=== PATIENT | male | born 1935 | race Two or more races ===

== ENCOUNTER 2017-08-12 17:21 | Inpatient (IN) | payer OTHER, MEDICARE ==
[~2017-08-12] VITALS: Ht 177.8 cm; Wt 65.0 kg
[2017-08-12 18:21] LABS: BASOPHIL % 0.3 % (0-2); RED CELL DISTRIBUTION WIDTH 14.1 % (11.5-14.5)
[2017-08-12 18:33] LABS: PLATELET COUNT 423 x10^3mcL (130-400)
[2017-08-12 18:54] LABS: UA SPECIFIC GRAVITY <=1.005 (1.005-1.035); microscopic required? YES; urine erythrocyte 3+ (NEGATIVE)
[2017-08-12 19:06] LABS: ALBUMIN 2.7 g/dL (3.4-5.0); ALKALINE PHOSPHATASE 65 U/L (46-116); ALT/SGPT 19 U/L (16-63); AST/SGOT 20 U/L (15-37); BILIRUBIN TOTAL 0.46 mg/dL (0.20-1.00); CALCIUM 8.5 mg/dL (8.5-10.1); CARBON DIOXIDE 27.4 mmol/L (21-32); CHLORIDE SERUM 94 mmol/L (98-107); CREATININE SERUM 2.2 mg/dL (0.7-1.3); GLUCOSE SERUM 135 mg/dL (74-106); POTASSIUM SERUM 3.1 mmol/L (3.5-5.1); SODIUM SERUM 134 mmol/L (136-145); TOTAL PROTEIN, SERUM 6.8 g/dL (6.4-8.2)
[2017-08-12] MEDS ORDERED: NAMENDA10 M2 PO (19:31)
[2017-08-12 20:31] VITALS: BP 122/79
[2017-08-12 20:35] VITALS: Ht 177.8 cm; Wt 65.0 kg
[2017-08-12 21:29] LABS: T3 TOTAL 0.98 ng/mL
[2017-08-12 21:59] LABS: CHOLESTEROL/HDL RATIO 3.2; MAGNESIUM 1.7 mg/dL (1.8-2.4); PHOSPHOROUS 3.3 mg/dL (2.5-4.9)
[2017-08-12 22:12] LABS: FREE T4 1.1 ng/dL (0.76-1.46); T4(THYROXINE) 5.4 ug/dL (4.7-13.3)
[2017-08-12 22:27] LABS: RED BLOOD CELLS 3.47 M/mm3 (4.52-5.90)
[2017-08-12 22:42] LABS: IRON 47 ug/dL (65-170); TOTAL IRON BINDING CAPACITY 299 ug/dL (250-450)
[2017-08-13 05:53] VITALS: BP 108/63
[2017-08-13 08:04] LABS: BASOPHIL % 0.5 % (0-2); PLATELET COUNT 393 x10^3mcL (130-400); RED CELL DISTRIBUTION WIDTH 13.9 % (11.5-14.5)
[2017-08-13 08:12] LABS: CALCIUM 8.2 mg/dL (8.5-10.1); CARBON DIOXIDE 27.3 mmol/L (21-32); CHLORIDE SERUM 105 mmol/L (98-107); CREATININE SERUM 1.9 mg/dL (0.7-1.3); GLUCOSE SERUM 102 mg/dL (74-106); MAGNESIUM 1.6 mg/dL (1.8-2.4); PHOSPHOROUS 2.7 mg/dL (2.5-4.9); POTASSIUM SERUM 3.5 mmol/L (3.5-5.1); SODIUM SERUM 142 mmol/L (136-145)
[2017-08-13 09:29] VITALS: BP 142/78
[2017-08-13 12:58] VITALS: BP 126/72
[2017-08-13 17:19] VITALS: BP 135/88
[2017-08-13 21:38] VITALS: BP 124/62
[2017-08-14 06:01] VITALS: BP 143/74
[2017-08-14 07:12] LABS: BASOPHIL % 0.3 % (0-2); RED CELL DISTRIBUTION WIDTH 13.4 % (11.5-14.5)
[2017-08-14 07:16] LABS: PLATELET COUNT 416 x10^3mcL (130-400)
[2017-08-14 07:19] LABS: CALCIUM 8.3 mg/dL (8.5-10.1); CARBON DIOXIDE 28.9 mmol/L (21-32); CHLORIDE SERUM 101 mmol/L (98-107); CREATININE SERUM 1.7 mg/dL (0.7-1.3); GLUCOSE SERUM 92 mg/dL (74-106); MAGNESIUM 1.4 mg/dL (1.8-2.4); PHOSPHOROUS 2.5 mg/dL (2.5-4.9); SODIUM SERUM 140 mmol/L (136-145)
[2017-08-14 07:37] LABS: POTASSIUM SERUM 2.7 mmol/L (3.5-5.1)
[2017-08-14 09:10] VITALS: BP 95/53
[2017-08-14 12:43] VITALS: BP 113/64
[2017-08-14 18:09] VITALS: BP 114/62
[2017-08-14] MEDS ORDERED: PREMIERPRO RX CE1 G3 IV (18:15)
[2017-08-14] MEDS ORDERED: LAC PO (18:16)
[2017-08-14] MEDS ORDERED: MAGNESIUM400 M1 PO (19:14)
[2017-08-14] MEDS ORDERED: FLO4 PO (19:28)
[2017-08-14 20:07] LABS: CALCIUM 8.3 mg/dL (8.5-10.1); CARBON DIOXIDE 30.9 mmol/L (21-32); CHLORIDE SERUM 103 mmol/L (98-107); CREATININE SERUM 1.6 mg/dL (0.7-1.3); GLUCOSE SERUM 135 mg/dL (74-106); POTASSIUM SERUM 3.8 mmol/L (3.5-5.1); SODIUM SERUM 140 mmol/L (136-145)
[2017-08-14 20:45] VITALS: BP 114/62
[2017-08-14 21:27] VITALS: BP 126/72
== END 2017-08-14 23:59 | DRG 720 ==
LOC: ED 17:21 → DU 18:57
PROVIDERS: Emergency Medicine; Family Medicine
DX: A41.9 Sepsis, unspecified organism (principal); N17.0 Acute kidney failure with tubular necrosis; E43 Unspecified severe protein-calorie malnutrition; D64.9 Anemia, unspecified; E87.8 Other disorders of electrolyte and fluid balance, not elsewhere classified; G30.9 Alzheimer's disease, unspecified; F02.80 Dementia in other diseases classified elsewhere, unspecified severity, without behavioral disturbance, psychotic disturbance, mood disturbance, and anxiety; R65.20 Severe sepsis without septic shock; Z87.891 Personal history of nicotine dependence; G90.8 Other disorders of autonomic nervous system; N30.01 Acute cystitis with hematuria; E87.1 Hypo-osmolality and hyponatremia; E87.6 Hypokalemia; Z68.22 Body mass index [BMI] 22.0-22.9, adult; E83.42 Hypomagnesemia; R47.01 Aphasia
CPT/HCPCS: 83880; 84439; 97110-GP; 97116-GP; 97530-GP; J0696; J2916; J3480; J7030; Q0092